=== PATIENT | male | born 2000 | race Caucasian/White ===

== ENCOUNTER 2022-11-20 23:23 | Emergency (ER) | payer BC ==
[~2022-11-20] VITALS: Ht 182.9 cm; Wt 87.0 kg
[2022-11-20 23:27] VITALS: O2SAT 100
[2022-11-20] MEDS ORDERED: ONDANSETRON HCL 4MG/2ML INJ IV STA (23:41)
[2022-11-20] MEDS ORDERED: SODIUM CHLORIDE 0.9% 1,000 ML IV ONE (23:45)
[2022-11-21 00:16] LABS: BASOPHILS % 0.3 % (0.0-2.0); EOSINOPHILS % 1.1 % (0.0-5.0); HEMATOCRIT. 43.9 % (42.0-52.0); HEMOGLOBIN. 14.5 g/dL (14.0-18.0); LYMPHOCYTES % 14.2 % (20.0-50.0); MEAN CORPUSCULAR HEMOGLOBIN 29.1 pg (28.0-32.0); MEAN CORPUSCULAR VOLUME 88.2 fL (80.0-94.0); MEAN PLATELET VOLUME 7.8 fl (7.4-10.4); MONOCYTES % 5.2 % (2.0-8.0); NEUTROPHILS % 79.2 % (40.0-76.0); PLATELET 186 x1000/uL (130-400); RED BLOOD CELL COUNT 4.97 mill/uL (4.7-6.1); WHITE BLOOD COUNT 11.6 x1000/uL (4.5-11.0)
[2022-11-21 00:28] LABS: CHLORIDE 109 mEq/L (98-107); INDEX HEMOLYSI 1 (1-3); INDEX ICTERIC 1 (1-4); INDEX LIPEMIC 1 (1-3); SODIUM 140 mEq/L (136-145)
[2022-11-21 00:35] LABS: ALANINE AMINOTRANSFERASE 23 IU/L (13-61); ALBUMIN 4.7 g/dL (3.4-5.0); ASPARTATE AMINOTRANSFERASE 16 IU/L (15-37); BILIRUBIN TOTAL 0.6 mg/dL (0.1-1.0); CALCIUM 8.2 mg/dL (8.5-10.1); CARBON DIOXIDE 22 mEq/L (21-32); CREATININE 0.9 mg/dL (0.6-1.3); ETHANOL BLOOD 143 mg/dL (<10); GLUCOSE 135 mg/dL (70-105); PROTEIN TOTAL 8.1 g/dL (6.0-8.3); UREA NITROGEN BLOOD 16 mg/dL (7-21)
[2022-11-21 00:40] LABS: POTASSIUM 2.7 mEq/L (3.5-5.1)
[2022-11-21] MEDS ORDERED: POTASSIUM CHLORIDE 20MEQ/PACKET PO NR (01:30)
[2022-11-21] MEDS ORDERED: ONDANSETRON HCL 4MG/2ML INJ IV NR (02:00)
[2022-11-21 03:24] VITALS: BP 110/48; PULSE 62; RESP 20; TEMP 97.9
== END 2022-11-21 03:22 | disposition home or self-care (01) ==
LOC: ER 23:23
DX: T51.0X1A Toxic effect of ethanol, accidental (unintentional), initial encounter (principal); Z98.890 Other specified postprocedural states; X58.XXXA Exposure to other specified factors, initial encounter
CPT/HCPCS: 80053; 80320; 85025; 36415; 71045; 99291; 70450; J7030; J2405; G0480